=== PATIENT | male | born 1965 | race Caucasian/White ===

== ENCOUNTER 2017-11-17 11:40 | Inpatient (IN) | payer BC ==
[~2017-11-17] VITALS: Ht 182.9 cm; Wt 91.4 kg
[~2017-11-17 11:40] MED LIST: ALIGN4 MG PO; ASACOL HD800 MG PO; COQ-10100 MG PO; FISH OIL PO; FLAX SEED PO; FLAXSEED OIL1000 MG PO; HUMIRA40 MG/0.8 SC; METAMUCIL PO; METAMUCIL0.52 GM PO; MULTI-VITAMIN1 EACH PO; PANTOPRAZOLE SO40 MG PO
[2017-11-17 12:47] LABS: BASOPHILS # (AUTO) 0.1 (0.0-0.1); BASOPHILS % 0.5 % (0.0-1.0); EOSINOPHILS # (AUTO) 0.2 (0.0-0.4); EOSINOPHILS % 1.7 % (0.0-6.0); HEMATOCRIT 40.4 % (38.2-49.6); HEMOGLOBIN 14.5 g/dL (14.0-18.0); LYMPHOCYTES % 7.4 % (18.0-39.1); MEAN CORPUSCULAR HEMOGLOBIN 32.4 pg (28-32); MEAN CORPUSCULAR HGB CONC 35.9 g/dL (31-35); MEAN CORPUSCULAR VOLUME 90.2 fL (81-99); MONOCYTES # (AUTO) 0.8 (0.2-0.8); NEUTROPHILS # (AUTO) 11.8 (2.1-6.9); PLATELET COUNT 221 x10e3/uL (140-360); RED BLOOD COUNT 4.48 x10e6/uL (4.3-5.7); RED CELL DISTRIBUTION WIDTH 12.3 % (11.7-14.4)
[2017-11-17 12:49] LABS: BILIRUBIN,URINE NEGATIVE (NEGATIVE); KETONES,URINE NEGATIVE (NEGATIVE); LEUKOCYTE ESTERASE ,URINE NEGATIVE (NEGATIVE); NITRITE,URINE NEGATIVE (NEGATIVE); PROTEIN,URINE DIPSTICK NEGATIVE (NEGATIVE); URINE UROBILINOGEN 0.2 mg/dL (0.2 - 1)
[2017-11-17 13:02] LABS: ALANINE AMINOTRANSFERASE 18 IU/L (0-55); ALBUMIN 4.2 g/dL (3.5-5.0); ALBUMIN/GLOBULIN RATIO 1.2 (0.8-2.0); ALKALINE PHOSPHATASE 44 IU/L (40-150); ANION GAP 13.8 mmol/L (8-16); BLOOD UREA NITROGEN 20 mg/dL (7-26); BUN/CREATININE RATIO 20 (6-25); CALCIUM 9.7 mg/dL (8.4-10.2); CARBON DIOXIDE 26 mmol/L (22-29); CHLORIDE 104 mmol/L (98-107); CREATININE, SERUM 0.98 mg/dL (0.72-1.25); EST GLOMERULAR FILTRATION RATE > 60 ML/MIN (60-); GLUCOSE 125 mg/dL (74-118); POTASSIUM 3.8 mmol/L (3.5-5.1); SODIUM 140 mmol/L (136-145)
[2017-11-17 13:04] LABS: CLARITY,URINE CLEAR (CLEAR); COLOR,URINE YELLOW (YELLOW); EPITHELIAL CELLS,URINE RARE /LPF
[2017-11-17] MEDS ORDERED: DICYCLOMINE HCL 20 MG TAB PO ONE (13:15)
[2017-11-17] MEDS ORDERED: DIATRIZOATE MEGL/DIATRIZOA SOD 30 ML BTL PO ONE (13:26)
--- NOTE | 2017-11-17 14:37 | Diagnostic Imaging Report ---
PROCEDURE: CT ABDOMEN AND PELVIS WITH CONTRAST TECHNIQUE: The abdomen and pelvis were scanned utilizing a multidetector helical scanner from the diaphragm to the lesser trochanter after the IV administration of 100 cc Isovue 370 and the oral administration of Gastrografin. Coronal and sagittal multiplanar reformations were obtained. COMPARISON: 04/23/2015. INDICATIONS: PAIN IN LOWER ABDOMEN, CHRONS FINDINGS: LOWER THORAX: Normal. HEPATOBILIARY: No focal hepatic lesion or intrahepatic biliary ductal dilatation. The gallbladder has been removed. SPLEEN: No splenomegaly. PANCREAS: No focal masses or ductal dilatation. ADRENALS: No adrenal nodules. KIDNEYS/URETERS: No hydronephrosis, stones, or solid mass lesions. PELVIC ORGANS/BLADDER: Urinary bladder is incompletely distended but otherwise unremarkable. Coarse central prostatic calcification unchanged. PERITONEUM / RETROPERITONEUM: No ascites. No pneumoperitoneum. LYMPH NODES: No pelvic sidewall, retroperitoneal, or mesenteric lymphadenopathy. VESSELS: The abdominal aorta, major branch vessels, and iliac arterial systems are well-visualized and patent. Incidental note of an accessory left lower pole renal artery. Right hepatic artery is replaced to the SMA. Portal vein, splenic vein, and central superior mesenteric vein are patent. GI TRACT: The large bowel shows no distention or wall thickening, though the sigmoid colon and rectum are collapsed and poorly evaluated. The ascending and transverse colon contain gas and fecal material. The appendix is distended to a maximum caliber of 14 mm, with wall thickening, enhancement, and mild periappendiceal inflammation. There is no small bowel dilatation to suggest obstruction. BONES AND SOFT TISSUES: No osseous destructive lesions. Degenerative changes of the hips are again noted.. IMPRESSION: Acute appendicitis without brandon perforation or drainable fluid collection. Findings were discussed by telephone with Dr. Price of the emergency center at 2:35 PM 11/17/2017. Dictated by: Jasvir Meyer M.D. on 11/17/2017 at 14:45 Electronically approved by: Jasvir Meyer M.D. on 11/17/2017 at 14:45
[2017-11-17] MEDS ORDERED: SODIUM CHLORIDE 0.9% 50ML 50 ML ONE (14:51)
[2017-11-17] MEDS ORDERED: IOPAMIDOL 370 MG/ML 200 ML INFUS..BTL INJ ONE (14:51)
[2017-11-17] MEDS ORDERED: PIPERACILLIN/TAZO 4.5 GM 100 ML IV STA (14:59)
[2017-11-17] MEDS ORDERED: ONDANSETRON HCL INJ 2 MG/ML VIAL IV PRN ×2 (15:00→18:15)
[2017-11-17] MEDS ORDERED: SODIUM CHLORIDE 0.9% 1000ML 1,000 ML IV SCH (15:00)
[2017-11-17] MEDS ORDERED: PIPER-TAZ 3.375 GM 50 ML IV SCH ×2 (16:30→22:00)
[2017-11-17] MEDS ORDERED: BUPIVACAINE HCL 0.5% INJ 30 ML VIAL INJ ONE (17:12)
[2017-11-17] MEDS ORDERED: NEOSTIGMINE 5 MG/5ML SYR ONE (18:04)
[2017-11-17] MEDS ORDERED: ONDANSETRON HCL INJ 2 MG/ML VIAL ONE (18:04)
[2017-11-17] MEDS ORDERED: KETOROLAC TROMETHAMINE 30 MG/ML VIAL ONE (18:04)
[2017-11-17] MEDS ORDERED: DEXAMETHASONE SOD PHOS INJ 4 MG/ML VIAL ONE (18:04)
[2017-11-17] MEDS ORDERED: DESFLURANE 240 ML BTL INH ONE (18:04)
[2017-11-17] MEDS ORDERED: ROCURONIUM BROMIDE 10 MG/ML 5ML VIAL ONE (18:04)
[2017-11-17] MEDS ORDERED: GLYCOPYRROLATE INJ 1MG/ 5 ML SYR ONE (18:04)
[2017-11-17] MEDS ORDERED: PROPOFOL IV EMULSION 10 MG/ML 20 ML VIAL ONE (18:04)
--- NOTE | 2017-11-17 18:06 | Consultation ---
DATE OF CONSULTATION: November 17, 2017 REFERRING PHYSICIAN: Dr. Roberto Carlos Magaña. HISTORY OF PRESENT ILLNESS: The patient is a 52-year-old male who presented with complaints of abdominal pain. Pain started last evening. Says localized to right lower quadrant. He denies nausea or vomiting. Came to the emergency room where a CT of the abdomen was done which revealed findings suggestive of acute appendicitis with very distended appendix up to 14 mm with wall thickening and periappendiceal inflammation. PAST MEDICAL HISTORY: Significant for Crohn's disease for which he takes Asacol and Humira. OTHER MEDICATIONS: Are vitamins as well as Protonix. PAST SURGICAL HISTORY: He has not had previous surgery. ALLERGIES: NO KNOWN DRUG ALLERGIES. FAMILY HISTORY: Noncontributory. SOCIAL HISTORY: The patient does not smoke cigarettes or drink alcohol. REVIEW OF SYSTEMS: Is as stated above, otherwise was negative. PHYSICAL EXAMINATION: VITALS: Normal. GENERAL: The patient is awake and alert and in no distress. HEENT: Unremarkable. Sclerae are nonicteric. NECK: Supple with no masses. LUNGS: Equal breath sounds, clear bilaterally. CHEST: Clear bilaterally. CARDIAC: Regular rate and rhythm. No murmur. ABDOMEN: Mildly distended. It is soft. There is mild right lower quadrant tenderness. There is no mass. EXTREMITIES: No edema. LABORATORY DATA: White blood cell count is 14,000. Hemoglobin and hematocrit are normal. Chemistries are essentially normal. ASSESSMENT: A 52-year-old male with findings suggesting acute appendicitis. Will benefit from appendectomy. Plan to schedule for today. The procedure was explained to the patient including risks, benefits and alternatives. He understands the procedure. He has had the opportunity to ask questions. Thank you for asking me to see Mr. Lee. Job#: [id number]
[2017-11-17] MEDS ORDERED: HYDROMORPHONE 1MG/1ML INJ IV PRN (18:15)
[2017-11-17] MEDS: SODIUM CHLORIDE 0.9% 1000ML 1,000 ML IV SCH (18:15)
[2017-11-17] MEDS ORDERED: HYDROCODONE/APAP 5MG-325MG TAB PO PRN (18:15)
[2017-11-17] MEDS ORDERED: HYDROMORPHONE 2MG/ML INJ IV PRN (18:30)
[2017-11-17] MEDS ORDERED: FENTANYL CITRATE/PF 100MCG/2 ML INJ ONE (19:05)
[2017-11-17] MEDS ORDERED: MIDAZOLAM HCL 2 MG/2 ML VIAL ONE (19:05)
--- NOTE | 2017-11-17 19:12 | Operative Report ---
DATE OF PROCEDURE: November 17, 2017 PREOPERATIVE DIAGNOSIS: Acute appendicitis. POSTOPERATIVE DIAGNOSIS: Acute appendicitis. OPERATION PERFORMED: Diagnostic laparoscopy, laparoscopic appendectomy. CABLE RIGGER: None. ANESTHESIA: General endotracheal. INDICATIONS AND FINDINGS: Patient is a 52-year-old male presenting with complaints of right lower quadrant abdominal pain. Workup revealed probable acute appendicitis. On surgery, the patient was found to have a very dilated appendix with some mild inflammation around it with no other abnormalities seen. TECHNIQUE: After adequate general endotracheal anesthesia with the patient in supine position, the abdomen was prepped and draped in sterile fashion with Juan solution. The skin of the umbilicus was infiltrated with 1/2% Marcaine. Incision made in the umbilicus. Abdominal wall was elevated and Veress needle was introduced. Pneumoperitoneum was then created. A 10 mm trocar and cannula was then passed through the umbilical wound. Laparoscopic camera was introduced. Initial laparoscopy revealed no free fluid. Liver appeared normal. Bowel was seen and appeared normal. A 12 mm trocar and cannula was placed suprapubically and a 5 mm trocar and cannula placed in the right upper quadrant. These were placed under direct vision. Cecum was elevated, and the appendix was identified. The appendix was noted to be very dilated and mildly inflamed. Window was created between the base of the appendix and mesoappendix. Base of the appendix was divided close to the cecum with Endo THAD stapler. Mesoappendix also divided with Endo THAD stapler freeing the appendix completely. A small amount of bleeding from the mesoappendix was controlled with Hemoclips. Appendix was placed into an Endo pouch and brought out through the suprapubic cannula. Care was taken that it did not touch the abdominal wall. The area of the appendectomy was irrigated with saline. All fluid aspirated and inspected for hemostasis which was seen to be adequate. Irrigated further with saline. All fluid aspirated and inspected once again for hemostasis, which was seen to be adequate. Instruments and cannulas were then removed. Pneumoperitoneum was evacuated. Wounds were then closed. Fascia and the umbilical and suprapubic wounds closed with 0 Vicryl. Skin to all wounds closed with andrés. Sterile dressing was applied to each wound. Patient tolerated procedure well. Estimated blood loss was 20 mL. There were no complications. All counts were correct. Patient was taken to the recovery room in satisfactory condition. Job#: [id number] GH cc:KELBY FARFAN MD cc:MARTY FARFAN MD
[2017-11-17 19:45] VITALS: BP 104/66
[2017-11-17] MEDS ORDERED: MESALAMINE 1600 MG PO SCH (21:00)
[2017-11-17] MEDS ORDERED: MESALAMINE 800 MG TAB PO SCH (21:00)
[2017-11-17] MEDS ORDERED: MESALAMINE 400 MG CAP PO SCH (21:00)
[2017-11-17] MEDS ORDERED: PIPER-TAZ 3.375 GM/50 ML BAG IV SCH (22:00)
[2017-11-17 22:29] VITALS: BP 104/66
[2017-11-17] MEDS: PIPER-TAZ 3.375 GM 50 ML IV SCH (23:45)
[2017-11-18] VITALS (7 sets, daily range): BP systolic 97–135; BP diastolic 56–75
[2017-11-18] MEDS: PIPER-TAZ 3.375 GM 50 ML IV SCH ×2 (05:17→12:03)
[2017-11-18] MEDS: SODIUM CHLORIDE 0.9% 1000ML 1,000 ML IV SCH (05:17)
[2017-11-18 06:57] LABS: BASOPHILS % 0.1 % (0.0-1.0); HEMATOCRIT 38.7 % (38.2-49.6); HEMOGLOBIN 13.4 g/dL (14.0-18.0); LYMPHOCYTES # (AUTO) 0.7 (1.0-3.2); LYMPHOCYTES % 7.3 % (18.0-39.1); MEAN CORPUSCULAR HEMOGLOBIN 32.1 pg (28-32); MEAN CORPUSCULAR HGB CONC 34.6 g/dL (31-35); MEAN CORPUSCULAR VOLUME 92.6 fL (81-99); MONOCYTES # (AUTO) 0.4 (0.2-0.8); MONOCYTES % 4.7 % (4.4-11.3); NEUTROPHILS # (AUTO) 8.1 (2.1-6.9); NEUTROPHILS % 87.5 % (38.7-80.0); PLATELET COUNT 203 x10e3/uL (140-360); RED BLOOD COUNT 4.18 x10e6/uL (4.3-5.7); RED CELL DISTRIBUTION WIDTH 12.6 % (11.7-14.4)
[2017-11-18 07:16] LABS: ALANINE AMINOTRANSFERASE 31 IU/L (0-55); ALBUMIN 3.6 g/dL (3.5-5.0); ALBUMIN/GLOBULIN RATIO 1.1 (0.8-2.0); ALKALINE PHOSPHATASE 46 IU/L (40-150); ANION GAP 13.2 mmol/L (8-16); BLOOD UREA NITROGEN 13 mg/dL (7-26); BUN/CREATININE RATIO 13 (6-25); CALCIUM 9.3 mg/dL (8.4-10.2); CARBON DIOXIDE 24 mmol/L (22-29); CHLORIDE 106 mmol/L (98-107); CREATININE, SERUM 0.98 mg/dL (0.72-1.25); EST GLOMERULAR FILTRATION RATE > 60 ML/MIN (60-); GLUCOSE 165 mg/dL (74-118); POTASSIUM 4.2 mmol/L (3.5-5.1); SODIUM 139 mmol/L (136-145)
[2017-11-18] MEDS ORDERED: MULTIVITAMINS/MINERALS TAB PO SCH (09:00)
[2017-11-18] MEDS ORDERED: MESALAMINE 800 MG TAB PO SCH (09:00)
[2017-11-18] MEDS ORDERED: PANTOPRAZOLE SOD 40 MG TABEC PO SCH (09:00)
[2017-11-18] MEDS ORDERED: BIFIDOBACTERIUM INFANTIS 4 MG PO SCH (09:00)
[2017-11-18] MEDS ORDERED: ASACOL HD 800 MG PO SCH (15:00)
== END 2017-11-18 15:30 | disposition home or self-care (01) | DRG 342 ==
LOC: ER 11:40 → OR 17:00 → IMCU 18:49
PROVIDERS: ADMIT Surgery; ATTEND Surgery
PROC: 0DTJ4ZZ Resection of Appendix, Percutaneous Endoscopic Approach (ICD-10-PCS; principal; 2017-11-17 16:30)
DX: K35.80 Unspecified acute appendicitis (principal); K50.90 Crohn's disease, unspecified, without complications
CPT/HCPCS: 36415; 74177; 80053; 81001; 85025; 87086; 88304; 99284; J1100; J1885; J2250; J2405; J2543; J7030; Q9967

== ENCOUNTER → 2019-01-19 | Day surgery (SDC) | payer BC ==
[~2019-01-19] MED LIST changes: +COQ-1030 MG; +FENTANYL CITRATE/PF 100MCG/2 ML INJ ONE; +LIDOCAINE HCL 2% LOCAL INJ 5 ML SDV VIAL INJ ONE; +MIDAZOLAM HCL 2 MG/2 ML VIAL ONE; +PROPOFOL IV EMULSION 10 MG/ML 50 ML VIAL ONE; +SIMETHICONE 40 MG/0.6 ML BTL ONE
--- OUTSIDE RECORDS SUMMARY | 2019-01-19 06:10 | XMS REPORT ---
Author Author [facility] Address Unknown Phone Unavailable Care Team Providers Care Applications Instructor Name Role Phone Catracho PINK Unavailable Unavailable NAYELI EVANS Unavailable Unavailable Problems This patient has no known problems. Allergies, Adverse Reactions, Alerts This patient has no known allergies or adverse reactions. Medications This patient has no known medications. Results Test Description Test Time Test Comments Text Results Atomic Results Result Comments CT ABDOMEN/PELVIS W [place] [address] Patient Name: WALTER POLLOCK MR #: [id number] : 1965 Age/Sex: 52/M Req #: [id number] Adm Physician: Ordered by: ISHA FRAUSTO Report #: [id number] Location: ER Room/Bed: Procedure: [id number] CT/CT ABDOMEN/PELVIS W Exam Date: Exam Time: REPORT STATUS: Signed PROCEDURE: CT ABDOMEN AND PELVIS WITH CONTRAST TECHNIQUE: The abdomen and pelvis were scanned utilizing a multidetector helical scanner from the diaphragm to the lesser trochanter after the IV administration of 100 cc Isovue 370 and the oral administration of Gastrografin. Coronal and sagittal multiplanar reformations were obtained. COMPARISON: 04/23/2015. INDICATIONS: PAIN IN LOWER ABDOMEN, CHRONS FINDINGS: LOWER THORAX: Normal. HEPATOBILIARY: No focal hepatic lesion or intrahepatic biliary ductal dilatation. The gallbladder has been removed. SPLEEN: No splenomegaly. PANCREAS: No focal masses or ductal dilatation. ADRENALS: No adrenal nodules. KIDNEYS/URETERS: No hydronephrosis, stones, or solid mass lesions. PELVIC ORGANS/BLADDER: Urinary bladder is incompletely distended but otherwise unremarkable. Coarse central prostatic calcification unchanged. PERITONEUM / RETROPERITONEUM: No ascites. No pneumoperitoneum. LYMPH NODES: No pelvic sidewall, retroperitoneal, or mesenteric lymphadenopathy. VESSELS: The abdominal aorta, major branch vessels, and iliac arterial systems are well-visualized and patent. Incidental note of an accessory left lower pole renal artery. Right hepatic artery is replaced to the SMA. Portal vein, splenic vein, and central superior mesenteric vein are patent. GI TRACT: The large bowel shows no distention or wall thickening, though the sigmoid colon and rectum are collapsed and poorly evaluated. The ascending and transverse colon contain gas and fecal material. The appendix is distended to a maximum caliber of 14 mm, with wall thickening, enhancement, and mild periappendiceal inflammation. There is no small bowel dilatation to suggest obstruction. BONES AND SOFT TISSUES: No osseous destructive lesions. Degenerative changes of the hips are again noted.. IMPRESSION: Acute appendicitis without brandon perforation or drainable fluid collection. Findings were discussed by telephone with Dr. Frausto of the emergency center at 2:35 PM 11/17/2017. Dictated by: Clara Medley M.D. on 11/17/2017 at 14:45 Electronically approved by: Clara Medley M.D. on 11/17/2017 at 14:45 Dictated By: CLARA MEDLEY MD 1445 Transcribed By: GOGO on 11/17/17 1445 COPY TO: ISHA FRAUSTO MRI HIP RIGHT WO [place] [address] Patient Name: WALTER POLLOCK MR #: [id number] : 1965 Age/Sex: 51/M Req #: [id number] Adm Physician: Ordered by: EVANS ANDREW DO Report #: [id number] Location: MRI Room/Bed: Procedure: [id number] MRI/MRI HIP RIGHT WO Exam Date: 07/03/17 Exam Time: 1235 REPORT STATUS: Signed TECHNIQUE: Magnetic resonance imaging of the RIGHT HIP and LEFT HIP were performed without injected contrast. HISTORY: Osteoarthritis COMPARISON: None available. FINDINGS: Bone: The bone marrow signal is heterogeneous, compatible with red marrow conversion, no specific evidence of a focal bone marrow replacing abnormality. No osteonecrosis or acute fracture. Joints: Right: Degenerative tearing and attenuation of the anterosuperior labrum with adjacent acetabular bone marrow edema and cystic changes. Intermediate to high-grade erosion of the weightbearing cartilage. Trace effusion with synovitis. Left: Degenerative tearing and attenuation of the anterosuperior and superior labrum with adjacent acetabular bone marrow edema and cystic changes. High-grade to full-thickness erosion of the weightbearing cartilage with adjacent mild subchondral bone marrow edema. Small effusion with synovitis. Soft tissues: Mild symmetrical edema adjacent to the greater trochanters, which is likely an incidental finding. IMPRESSION: Moderate to severe bilateral degenerative changes of the hips, including degenerative tearing of the donald. The associated reactive subchondral bone marrow edema, synovitis and effusion is slightly greater on the left. Signed by: Dr. Sae Lopez M.D. on 07/03/2017 2:44 PM Dictated By: SAE LOPEZ DO 1444 Transcribed By: DILMA on 07/03/17 1444 COPY TO: NAYELI EVANS DO MRI HIP LEFT WO [place] [address] Patient Name: WALTER POLLOCK MR #: [id number] : 1965 Age/Sex: 51/M Req #: [id number] Adm Physician: Ordered by: EVANS ANDREW DO Report #: [id number] Location: MRI Room/Bed: Procedure: [id number] MRI/MRI HIP LEFT WO Exam Date: 07/03/17 Exam Time: 1235 REPORT STATUS: Signed TECHNIQUE: Magnetic resonance imaging of the RIGHT HIP and LEFT HIP were performed without injected contrast. HISTORY: Osteoarthritis COMPARISON: None available. FINDINGS: Bone: The bone marrow signal is heterogeneous, compatible with red marrow conversion, no specific evidence of a focal bone marrow replacing abnormality. No osteonecrosis or acute fracture. Joints: Right: Degenerative tearing and attenuation of the anterosuperior labrum with adjacent acetabular bone marrow edema and cystic changes. Intermediate to high-grade erosion of the weightbearing cartilage. Trace effusion with synovitis. Left: Degenerative tearing and attenuation of the anterosuperior and superior labrum with adjacent acetabular bone marrow edema and cystic changes. High-grade to full-thickness erosion of the weightbearing cartilage with adjacent mild subchondral bone marrow edema. Small effusion with synovitis. Soft tissues: Mild symmetrical edema adjacent to the greater trochanters, which is likely an incidental finding. IMPRESSION: Moderate to severe bilateral degenerative changes of the hips, including degenerative tearing of the donald. The associated reactive subchondral bone marrow edema, synovitis and effusion is slightly greater on the left. Signed by: Dr. Sae Lopez M.D. on 07/03/2017 2:44 PM Dictated By: SAE LOPEZ DO 1444 Transcribed By: DILMA on 07/03/17 1447 COPY TO: NAYELI EVANS DO
[2019-01-19 09:05] VITALS: BP 112/78
--- NOTE | 2019-01-19 13:34 | Operative Report ---
DATE OF PROCEDURE: 01/19/2019 SURGEON: Jenaro Magaña MD PROCEDURES: Colonoscopy and polypectomy with biopsies. INDICATIONS FOR COLONOSCOPY: Surveillance colonoscopy, history of Crohn disease, personal history of colon polyp. MEDICATIONS: The patient was done under MAC. Please see anesthesiologist's note. PROCEDURE IN DETAIL: With the patient in the left lateral decubitus position, a flexible fiberoptic Olympus colonoscope was inserted into the rectum with ease and advanced all the way to the cecum. The ileocecal valve was intubated and the scope was advanced into the terminal ileum. Biopsies were obtained. The scope was then withdrawn back into the colon. It was then withdrawn slowly. Mucosa overlying the cecum and the proximal ascending colon appeared to be within normal limits. There were some patchy erythema and low-grade to moderate edema noted in the distal ascending colon involving the hepatic flexure. Biopsies were obtained. One polyp was hot biopsied from the ascending colon. The transverse colon overall looked within normal limits. One polyp was hot biopsied from the descending colon. The descending, sigmoid and proximal rectum appeared to be within normal limits. The distal rectum had diffuse erythema and low-grade to moderate edema, and biopsies were obtained. The scope was then retroflexed into the distal rectum. Small internal hemorrhoids were noted, none of which was actively bleeding. The scope was then straightened out, it was subsequently withdrawn. The patient tolerated procedure well. IMPRESSION: 1. Mild patchy segmental colitis in ascending colon. 2. Colon polyp, distal ascending colon, hot biopsied. 3. Descending colon polyp, hot biopsied. 4. Proctitis, mild, distal rectum biopsy. 5. Internal hemorrhoids, none actively bleeding. PLAN: Follow up histology. Continue Humira and mesalamine therapy. Timing of followup colonoscopy pending pathology report. MD ERIC Beal/JULIANN /[id number] cc: Michael Chu DO
== END | disposition home or self-care (01) ==
LOC: OR 06:08
PROVIDERS: ATTEND Internal Medicine Gastroenterology
DX: K50.10 Crohn's disease of large intestine without complications (principal); K63.5 Polyp of colon; K62.89 Other specified diseases of anus and rectum; K64.8 Other hemorrhoids; K21.9 Gastro-esophageal reflux disease without esophagitis; K20.8 Other esophagitis; Z68.26 Body mass index [BMI] 26.0-26.9, adult; Z01.810 Encounter for preprocedural cardiovascular examination
CPT/HCPCS: 45380; 45384; 93005; J2001; J2250; J2704; 45378

== ENCOUNTER → 2021-08-28 | Day surgery (SDC) | payer BC ==
[~2021-08-28] MED LIST changes: +ALIGN4 MG; -FENTANYL CITRATE/PF 100MCG/2 ML INJ ONE; +HUMIRA40 MG/0.8; -LIDOCAINE HCL 2% LOCAL INJ 5 ML SDV VIAL INJ ONE; -PROPOFOL IV EMULSION 10 MG/ML 50 ML VIAL ONE; -SIMETHICONE 40 MG/0.6 ML BTL ONE
[2021-08-28 10:40] VITALS: BP 123/82
== END | disposition home or self-care (01) ==
LOC: OR 06:38
PROVIDERS: ATTEND Internal Medicine Gastroenterology
DX: K50.914 Crohn's disease, unspecified, with abscess (principal); Z86.010 Personal history of colon polyps; K29.50 Unspecified chronic gastritis without bleeding; K20.90 Esophagitis, unspecified without bleeding; K64.8 Other hemorrhoids; K21.9 Gastro-esophageal reflux disease without esophagitis; Z01.810 Encounter for preprocedural cardiovascular examination; Z01.812 Encounter for preprocedural laboratory examination; Z20.822 Contact with and (suspected) exposure to COVID-19; Z87.891 Personal history of nicotine dependence
CPT/HCPCS: 36415; 43239; 45380; 85651; 86140; 93005; C9113; J2250; U0002; 45378

== ENCOUNTER → 2021-10-03 | Outpatient (CLI) | payer BC ==
[~2021-10-03] MED LIST changes: -MIDAZOLAM HCL 2 MG/2 ML VIAL ONE
== END ==
LOC: DX 07:36
PROVIDERS: ATTEND Internal Medicine Gastroenterology
DX: K50.90 Crohn's disease, unspecified, without complications (principal); Z20.822 Contact with and (suspected) exposure to COVID-19
CPT/HCPCS: 74250; U0002

== ENCOUNTER → 2023-03-04 | Day surgery (SDC) | payer BC ==
[2023-03-02 11:44] LABS: BASOPHILS # (AUTO) 0.1 (0.0-0.1); BASOPHILS % 1.3 % (0.0-1.0); EOSINOPHILS # (AUTO) 0.3 (0.0-0.4); EOSINOPHILS % 4.5 % (0.0-6.0); HEMATOCRIT 39.4 % (38.2-49.6); HEMOGLOBIN 13.4 g/dL (14.0-18.0); LYMPHOCYTES % 32.3 % (18.0-39.1); MEAN CORPUSCULAR HEMOGLOBIN 31.7 pg (28-32); MEAN CORPUSCULAR VOLUME 93.1 fL (81-99); MONOCYTES # (AUTO) 0.7 (0.2-0.8); NEUTROPHILS # (AUTO) 3.1 (2.1-6.9); NEUTROPHILS % 50.6 % (38.7-80.0); PLATELET COUNT 202 x10e3/uL (140-360); RED BLOOD COUNT 4.23 x10e6/uL (4.3-5.7); RED CELL DISTRIBUTION WIDTH 12.9 % (11.7-14.4)
[2023-03-02 12:01] LABS: ANION GAP 13.2 mmol/L (8-16); CALCIUM 9.7 mg/dL (8.4-10.2); CREATININE, SERUM 0.91 mg/dL (0.72-1.25); POTASSIUM 4.2 mmol/L (3.5-5.1)
[~2023-03-04] MED LIST changes: +BUPIVACAINE HCL 0.5% 10ML MPF VIAL INJ ONE; +BUPIVACAINE HCL 0.5% INJ 30 ML VIAL INJ ONE; +DEXAMETHASONE SOD PHOS INJ 4 MG/ML SDV ONE; +EPHEDRINE SULFATE INJ 50 MG/ML VIAL ONE; +FENTANYL CITRATE/PF 100MCG/2 ML INJ ONE; +GLYCOPYRROLATE INJ 0.2 MG/ML VIAL ONE; +HYDROCODONE/APAP 7.5MG-325MG 1 EA TAB ONE; +KETAMINE HCL INJ 50 MG/ML 10 ML VIAL ONE; +LACTATED RINGER'S 1,000 ML ONE; +LIDOCAINE HCL 2% LOCAL INJ 5 ML SDV VIAL INJ ONE; +MIDAZOLAM HCL 2 MG/2 ML VIAL ONE; +NEOSTIGMINE 1 MG/ML 10ML VIAL ONE; +ONDANSETRON HCL INJ 2MG/ML 2ML 2 MG/ML VIAL ONE; +POVIDONE IODINE 0.05% 0.05 % ML PO ONE; +PROPOFOL IV EMULSION 10 MG/ML 20 ML VIAL ONE; +ROCURONIUM BROMIDE 10 MG/ML 5ML VIAL IV ONE; +SEVOFLURANE INHAL SOLN 250 ML PEN BTL ONE
[2023-03-04 11:05] VITALS: BP 106/76
== END | disposition home or self-care (01) ==
LOC: OR 06:51
PROVIDERS: ATTEND Surgery
DX: K43.6 Other and unspecified ventral hernia with obstruction, without gangrene (principal); K58.9 Irritable bowel syndrome, unspecified; Z01.810 Encounter for preprocedural cardiovascular examination; Z01.812 Encounter for preprocedural laboratory examination; Z20.822 Contact with and (suspected) exposure to COVID-19; Z79.899 Other long term (current) drug therapy
CPT/HCPCS: 0223U; 36415; 49594; 80048; 85025; 93005; C1781; J0690; J1100; J2001; J2250; J2405; J2704; J2710; J3010; J7121

== ENCOUNTER → 2025-02-03 | Outpatient (REF) | payer BC ==
[~2025-02-03] MED LIST changes: -BUPIVACAINE HCL 0.5% 10ML MPF VIAL INJ ONE; -BUPIVACAINE HCL 0.5% INJ 30 ML VIAL INJ ONE; -DEXAMETHASONE SOD PHOS INJ 4 MG/ML SDV ONE; -EPHEDRINE SULFATE INJ 50 MG/ML VIAL ONE; -FENTANYL CITRATE/PF 100MCG/2 ML INJ ONE; -GLYCOPYRROLATE INJ 0.2 MG/ML VIAL ONE; -HYDROCODONE/APAP 7.5MG-325MG 1 EA TAB ONE; -KETAMINE HCL INJ 50 MG/ML 10 ML VIAL ONE; -LACTATED RINGER'S 1,000 ML ONE; -LIDOCAINE HCL 2% LOCAL INJ 5 ML SDV VIAL INJ ONE; -MIDAZOLAM HCL 2 MG/2 ML VIAL ONE; -NEOSTIGMINE 1 MG/ML 10ML VIAL ONE; -ONDANSETRON HCL INJ 2MG/ML 2ML 2 MG/ML VIAL ONE; -POVIDONE IODINE 0.05% 0.05 % ML PO ONE; -PROPOFOL IV EMULSION 10 MG/ML 20 ML VIAL ONE; -ROCURONIUM BROMIDE 10 MG/ML 5ML VIAL IV ONE; -SEVOFLURANE INHAL SOLN 250 ML PEN BTL ONE
== END ==
LOC: US 08:47
PROVIDERS: ATTEND Nurse Practitioner
DX: R10.31 Right lower quadrant pain (principal)
CPT/HCPCS: 76700